=== PATIENT | male | born 1980 | race Caucasian/White ===

== ENCOUNTER 2017-05-02 13:28 | Outpatient (CLI) ==
--- NOTE | 2017-05-02 14:04 | DI ---
EXAM: CHEST FRONTAL AND LATERAL VIEWS HISTORY: Chest wall pain. COMPARISON: 06/20/2011 FINDINGS: Heart size and mediastinal contour within normal limits. No acute infiltrates. Normal vascularity with no pleural fluid or pneumothorax. The bony thorax has no acute finding. IMPRESSION: No acute process.
== END 2017-05-02 13:29 | disposition home or self-care (01) ==
LOC: RAD 13:28
PROVIDERS: ATTEND Family Medicine
DX: R07.89 Other chest pain (principal)

== ENCOUNTER 2017-05-03 13:31 | Outpatient (CLI) ==
--- NOTE | 2017-05-03 15:13 | CT ---
EXAM: CT ABDOMEN AND PELVIS HISTORY: Left upper quadrant abdominal pain. Left lower rib pain without injury. Previous cholecys tectomy and appendectomy. TECHNIQUE: CT abdomen and pelvis without intravenous contrast. Images were reconstructed using 5 mm section thickness. Reformations were prepared. COMPARISON: None FINDINGS: No focal hepatic or splenic lesions. Gallbladder is absent. Pancreas and adrenal glands appear norm al. Kidneys and ureters appear normal. Normal abdominal aorta. Stomach is unremarkable. No appendix is identified. Nonobstructive bowel gas pattern. A few subtle diverticula mainly of the upper descending colon and splenic flexure without obvious inflammation. Urinary bladder and prostate appear normal. No ascites. There is a fatty umbilical hernia with a transverse neck of 1.3 cm likely of no current clinical sign ificance. The bones reveal transitional vertebral body anatomy at the lumbosacral junction although were otherwise unremarkable. Lung bases are clear. No pneumoperitoneum. IMPRESSION: Subtle diverticulosis of the colon along the splenic flexure and upper descending portio ns. No evidence of diverticulitis. No distinct etiology for the patient's symptoms was found.
== END 2017-05-03 13:32 | disposition home or self-care (01) ==
LOC: RAD 13:31
PROVIDERS: ATTEND Family Medicine
DX: R10.12 Left upper quadrant pain (principal)